=== PATIENT | male | born 1965 | race Caucasian/White ===

== ENCOUNTER 2016-04-19 19:35 | Inpatient (IN) | payer BC ==
[~2016-04-19] VITALS: Ht 182.9 cm; Wt 77.8 kg
--- NOTE | 2016-04-20 06:48 | ER ---
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 Developed fevers, chills, hemoptysis tonight. States he has had ongoing bitemporal headache with nausea for the past 3 weeks since instituting chemotherapy. Denies any rash, significant vomiting or urinary symptoms. Does admit to ongoing diarrhea. ALLERGIES: NONE. MEDICATIONS: Please see nurse's MAR. ILLNESSES: Myelodysplastic syndrome, transfusion-dependent pancytopenia, cervical and lumbar degenerative disk disease with radiculopathy, COPD, emphysema. OPERATIONS: Cholecystectomy, bilateral rotator cuff repair, venous access device recently and epidural steroid injections, cervical and lumbar region in remote past. SOCIAL HISTORY: Smoker, greater than 40-pack year history, recently cut down to 3 cigarettes a day. No illicit drugs or alcohol. FAMILY HISTORY: Negative per chart review. REVIEW OF SYSTEMS: A 12-point review of systems negative for all other systems, illnesses, or operations except as outlined above. PHYSICAL EXAMINATION: VITAL SIGNS: Temperature 102.3, pulse 116, respirations 14, BP 126/95, SaO2 of 96% on room air. GENERAL: Toxic appearing, febrile male without diaphoresis. Obvious chills and rigors noted. HEENT: Normocephalic. No evidence of epistaxis, rhinorrhea, or otorrhea. NECK: Supple without meningismus. CHEST: Clear breath sounds, equal, though diminished without rales, rhonchi, or wheeze. HEART: Tachycardic, regular without murmur, gallop, or edema. ABDOMEN: Soft, nontender, nondistended without mass or megaly. Bowel sounds hypoactive. EXTREMITIES: No evidence of Homans sign, synovitis, or dermatitis. NEURO: EOMI. PERRLA. No evidence of drift, dysarthria, or ataxia. Gait normal. MENTAL STATUS: Alert, oriented, and cooperative without delusions, hallucinations, or abnormal thought content. MEDICAL DECISION MAKING: Chest x-ray negative. CT chest negative for obvious large PE or pneumonia. Emphysematous change more readily apparent than on chest x-ray. EKG showed sinus tach rate of 108 with early transition, ADMIT: 04/19/2016 RM/LOC: 426 [facility] MR#: [id number] [address] [address] DIANE CARRINGTON [address] [place] [address] Emergency Room Report SEX: M AGE: 51 : 1965 otherwise negative. WBC 0.5 with no neutrophils. Hemoglobin 6.6, platelets 24, CRP 3.69. Procalcitonin 0.26, lactic 1.1, creatinine 1.2, potassium 3.4. BN peptide 536. Troponin less than 0.015. INR 1.05. UA negative. Flu screen pending. Blood cultures pending. The patient was covered with cefepime 2 g IV on admission, Tylenol 1 g on admission, Toradol 30 mg IV push upon return from CT. Discussed findings with Dr. Ely and Dr. Vargas. Dr. Vargas gave orders to the nursing staff. Due to the patient's presentation, findings, and intervention, 30 minutes of critical care is warranted. DIAGNOSES: 1. Myelodysplastic syndrome with transfusion-dependent pancytopenia. 2. Neutropenic fever. 3. Emphysema. 4. Chronic headache. RECOMMENDATION: Admit to inpatient telemetry with reverse isolation. ADMISSION/DISCHARGE CONDITION: Serious. Patient is a full code. Geronimo Green MD/ nik JOB #: [id number] CC: Demarcus Ely MD, Attending Physician Jose Stapleton MD, Family Physician Catarina Forrest MD
--- NOTE | 2016-04-22 08:13 | HP ---
ADMIT: 04/19/2016 RM/LOC: 426 [facility] MR#: [id number] [address] BG CARRINGTON [address] [place] [address] History and Physical SEX: M AGE: 51 : 1965 DATE OF SERVICE: HISTORY OF PRESENT ILLNESS: Bg is a 51-year-old, white male patient of Dr. 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 This was discovered in February after a bone marrow biopsy. Three weeks ago, we started chemotherapy for this. He says that ever since then, he has had a bitemporal headache with complaints of squeezing pressure around the front of his head yesterday, he was in to receive a transfusion of red blood cells and platelets. He states when he got home, he had leg weakness and shaking chills and his measured a temp of almost 105. He says that his fever would wax and wane and sometimes drop down to 102, but he was subsequently brought to the ER for further evaluation. He also notes that he has had some hemoptysis. He coughs up some clear sputum but does notice some dark red streaks within it. He does have a history of smoking and COPD as well. He denies any rash, chest pain, nausea, or vomiting. Does report slight ongoing diarrhea. PAST MEDICAL HISTORY: Myelodysplastic syndrome, transfusion-dependent pancytopenia, degenerative disk disease, COPD. PAST SURGICAL HISTORY: Cholecystectomy, bilateral rotator cuff repair, left central line placement for his chemo recently, cervical and lumbar steroid injections in the past. FAMILY HISTORY: Noncontributory. SOCIAL HISTORY: [id number]-day smoking history for the last 20-30 years, recently cut down to about 3 cigarettes daily. ALLERGIES: NONE. MEDICATIONS: Please see a chart. REVIEW OF SYSTEMS: The patient reports a severe headache for the last 3 weeks, feels like someone has 2 films on his temples and is squeezing in. He denies any shortness of breath but does notice when his hemoglobin drops lower, he gets an anxious feeling and he does have 1-day history of some mild hemoptysis. Also notes a firm tender reddened area in his right wrist from a previous IV access that has not gone away. Otherwise, 10-point review of systems is negative except as noted per HPI. PHYSICAL EXAMINATION: VITAL SIGNS: Temp 100.4, pulse 102, respirations 16, blood pressure 131/53, O2 saturation 93% on room air. GENERAL: The patient is awake, alert, and oriented X3; pleasant, in good spirits. HEENT: Normocephalic and atraumatic. NECK: No lymphadenopathy. Normal range of motion. LUNGS: Clear to auscultation bilaterally. CHEST: Does have a central line in left upper chest. ADMIT: 04/19/2016 RM/LOC: 426 [facility] MR#: [id number] [address] [address] BG CARRINGTON [address] [place] [address] History and Physical SEX: M AGE: 51 : 1965 HEART: Regular rhythm and rate. No murmurs, rubs, or gallops. ABDOMEN: Soft, nontender, and nondistended. Normoactive bowel sounds. EXTREMITIES: No focal neurological deficits. Normal spontaneous movement of all limbs. Does have a firm 0.5 cm nodule in right wrist over the distribution of his right of his vein. NEURO: Cranial nerves II through XII grossly intact. SKIN: No clubbing, cyanosis, or edema. LABS AND IMAGING: Previous bone marrow shows pancytopenia with macrocytosis with a diagnosis of myelodysplastic syndrome, consistent with refractory cytopenia with multi-lineage dysplasia. UA was normal. White count is 0.5, hemoglobin 6.6, platelets 24. CMP is normal except for a potassium slightly low at 3.4, calcium slightly low at 7.8. CRP is 3.69. Chest x-ray shows no acute cardiopulmonary process. Procalcitonin is 0.26. Head CT was done, which shows no acute intracranial abnormality, some mild chronic-appearing left maxillary sinus. Chest CT shows no acute chest abnormality, some mild emphysematous changes and a left-sided Port-A-Cath in place. Influenza was negative. Blood cultures are pending. ASSESSMENT AND PLAN: 1. Myelodysplastic syndrome. 2. Pancytopenia. 3. Neutropenic fever. 4. Headache. 5. Right wrist nodule. PLAN: Oncology has already been consulted and we will get a CBC with manual diff, CMP, procalcitonin, and lactic acid again this morning. If okay with Oncology, we will ask [facility] to do a spinal tap and send the CSF for Gram-stain, culture, sensitivities, glucose, and protein levels. Headache is not controlled with morphine or other oral medications. We will try Flexeril 10 mg t.i.d. We will also obtain a right wrist ultrasound to evaluate for scarring versus blood clot versus thrombophlebitis in that right wrist. Yon Vargas MD Resident / Demarcus Ely MD / valeriel JOB #: [id number] CC: Demarcus Ely, Attending Physician Jose Stapleton, Family Physician
[2016-04-23] MEDS ORDERED: DIFLUCAN DPS200 MG PO (20:14)
[2016-04-23] MEDS ORDERED: LEVAQUIN DPS500 MG PO (20:14)
[2016-04-23] MEDS ORDERED: PROTONIX40 MG PO (20:14)
[2016-04-23] MEDS ORDERED: ANORO ELLIPTA 62.1 - IH (20:15)
[2016-04-23] MEDS ORDERED: COMPAZINE10 MG PO (20:15)
[2016-04-23] MEDS ORDERED: ZOVIRAX400 MG PO (20:15)
[2016-04-23] MEDS ORDERED: PERCOCET 5 DPS1 TAB PO (20:16)
[2016-04-23] MEDS ORDERED: FLEXERIL-DPS10 MG PO (20:16)
[2016-04-23] MEDS ORDERED: NICOTINE PATCH1 EAC1 PO (20:16)
[2016-04-23] MEDS ORDERED: BENADRYL-DPS25 MG PO (20:16)
[2016-04-23] MEDS ORDERED: SURFAK DPS240 MG PO (20:17)
[2016-04-23] MEDS ORDERED: TYLENOL EXTRA500 M1 PO (20:17)
[2016-04-23] MEDS ORDERED: TYLENOL DPS325 MG PO (20:17)
[2016-04-23] MEDS ORDERED: MOTRIN-DPS800 MG PO (20:17)
[2016-04-23] MEDS ORDERED: MAALOX DPS30 ML PO (20:17)
--- NOTE | 2016-04-28 07:39 | DS ---
ADMIT: 04/19/2016 RM/LOC: 426 [facility] MR#: [id number] [address] [address] GB CARRINGTON [address] [place] [address] General Discharge Summary SEX: M AGE: 51 : 1965 ADMISSION DATE: 04/19/2016 DISCHARGE DATE: 04/23/2016 ADMITTING DIAGNOSIS: Neutropenic fever. DISMISSAL DIAGNOSES: 1. Myelodysplastic syndrome. 2. Pancytopenia. 3. Headache. CONSULTANTS: Dr. Nova. CHIEF COMPLAINT AND HISTORY OF PRESENT ILLNESS: A 51-year-old, male patient of Dr. Stapleton is admitted through [facility] with transfusion-dependent myelodysplastic syndrome and pancytopenia. This was discovered in February after bone marrow biopsy. Three weeks ago, he was started on chemotherapy. Since then, he has had bitemporal headache with complaints of squeezing pressure-type sensation in the front of his head. He was to receive a transfusion of red blood cells and platelets. States when he got home, he had leg weakness, aching, chills. His took his temperature, it was 105 degrees orally. The fever would come and go, dropped down to 102. We brought in the emergency room for further workup. He has also been coughing up some sputum that was blood tinged. He is admitted for further workup and evaluation and treatment. LABORATORY REPORTS: See pathology lab summary sheets. Admitting white count was 400, prior to dismissal white count was 1.3. Hemoglobin on admission was 6.6, the following day 5.7. After transfusion, it was 8.8. Platelets on admission were 20,000, the following day 9000. After platelet [place] [address]. Percent neutrophils with a white count of 400 was 2.4. Initially in the emergency room, white count was 500, and hemoglobin was 6.6. Cerebral spinal fluid protein was 45, glucose 57, UA was negative. Electrolytes on April 22; sodium 139, potassium 4.5, chloride 105, CO2 of 25, BUN 14, creatinine 1.2, glucose 172. Procalcitonin was 0.26. Liver enzymes were essentially within normal limits. Lactic acid on admission was 2.3. Procalcitonin on admission was 0.53. Magnesium was 1.8. ProBNP was 538. Swab for influenza A and B were negative. Meningitis studies on cerebral spinal fluid were negative. Blood cultures were negative x2. Spinal fluid culture was negative. Gram stain of the spinal fluid was negative. Urine culture was negative. Blood type is A positive. RADIOLOGY REPORT: CT scan of the head showed no intracranial abnormalities other than some left maxillary sinus thickening. CT of the chest showed diffuse central lobular emphysematous changes of lungs with suspected chronic areas of biapical pleural-parenchymal scarring. Advanced multilevel degenerative changes involving the mid and lower thoracic spine. Left-sided Port-A-Cath in place, small hiatal hernia is suspected. Chest x-ray showed no acute changes. Ultrasound of the right wrist showed area of superficial thrombophlebitis. EKG showed sinus tachycardia with incomplete bundle-branch ADMIT: 04/19/2016 RM/LOC: 426 [facility] MR#: [id number] [facility] [address] [address] BG CARRINGTON [address] [place] [address] General Discharge Summary SEX: M AGE: 51 : 1965 block. Spinal fluid for malignant cells was negative. HOSPITAL COURSE: Bg was admitted, cultures obtained due to severe headache. Spinal fluid studies were also obtained. Oncology was consulted. He was started on IV fluids. IV morphine for pain. IV Zofran for nausea. Cefepime IV 2 g q.8 hours. Started on home medications of fluconazole 200 mg p.o. daily, acyclovir 400 mg daily. Levaquin was held due to severe low hemoglobin and platelets, he was transfused with some platelets and red blood cells. Headache was not improved with Dilaudid. He was given oral Percocet, which helped the headache quite a bit. He was improved enough at the time of dismissal. He was afebrile. Cultures were negative. Antibiotics were stopped. White count did improve. DISCHARGE MEDICATIONS: He was sent home on: 1. Diflucan 200 mg p.o. daily for a week. 2. Flexeril 10 mg p.o. t.i.d. p.r.n. for muscle spasm or tension headache. 3. Zovirax 400 mg p.o. daily. 4. Habitrol 14 mg patch daily. 5. PRN Percocet. 6. Levaquin 500 mg p.o. daily. He will been seen within 2 weeks by his primary physician, Dr. Stapleton for followup. Demarcus Ely MD/ nik JOB #: [id number] CC: Demarcus Ely MD, Attending Physician Jose Stapleton MD, Family Physician
== END 2016-04-23 10:34 | disposition home or self-care (01) | DRG 809 ==
LOC: ER 19:35 → 4PCU 21:14
PROVIDERS: ADMIT Family Medicine
PROC: 30233N1 Transfusion of Nonautologous Red Blood Cells into Peripheral Vein, Percutaneous Approach (ICD-10-PCS; principal; 2016-04-21)
PROC: 009U3ZX Drainage of Spinal Canal, Percutaneous Approach, Diagnostic (ICD-10-PCS; principal; 2016-04-21)
PROC: B01BZZZ Fluoroscopy of Spinal Cord (ICD-10-PCS; principal; 2016-04-21)
DX: D70.9 Neutropenia, unspecified (principal); R04.2 Hemoptysis; I80.8 Phlebitis and thrombophlebitis of other sites; R50.81 Fever presenting with conditions classified elsewhere; D61.818 Other pancytopenia; D46.9 Myelodysplastic syndrome, unspecified; M50.10 Cervical disc disorder with radiculopathy, unspecified cervical region; M51.16 Intervertebral disc disorders with radiculopathy, lumbar region; J43.9 Emphysema, unspecified; F17.210 Nicotine dependence, cigarettes, uncomplicated